=== PATIENT | male | born 1990 | race Two or more races ===

== ENCOUNTER 2016-12-05 14:44 | Emergency (ER) | payer OTHER ==
[2016-12-05 15:01] VITALS: BP 132/76; PULSE 90; RESP 16; TEMP 98.1; O2SAT 97
--- NOTE | 2016-12-05 15:27 | UCPHY ---
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 He describes associated small raised red bumps. He has been using Benadryl cream with partial improvement and notes no other exacerbating or alleviating factors. He took a break from that room for few days and then was back in the same area expose the same chemical over the past couple days with worsening symptoms. ROS: No mouth lesions. No shortness of breath wheeze. No nausea vomiting. No headache. No other symptoms and 7 point ROS is otherwise negative. Past Medical/Surgical History: Bleeding ulcer otherwise healthy Smoking Status: Never smoked Physical Exam: Physical Exam Vital signs are normal. General: No acute distress HEENT: Atraumatic. Mouth: No intraoral lesions. Eyes: Pupils equal and react to light. Extraocular motions are intact. Lungs: No respiratory distress. Cardiac: Brisk capillary refill is intact throughout. Skin: The patient has small raised erythematous papules to his neck some with desquamation from scratching these are also small 2-3 mm in size. No petechia or purpura. The affected skin is limited to the posterior neck. Neuro: Alert and oriented x3 with no sensorimotor deficits. Initial differential diagnosis: Contact dermatitis, nonspecific dermatitis Constitutional: Initial Vital Signs Temperature (C) 36.7 C 12/05/16 14:57 Heart Rate 90 12/05/16 14:57 Respiratory Rate 16 12/05/16 14:57 Blood Pressure 132/76 H 12/05/16 14:57 O2 Sat (%) 97 12/05/16 14:57 O2 Delivery Mode Room Air Allergies/Adverse Reactions: No Known Allergies Allergy (Unverified 12/05/16 14:55) Home Medications: Medication Instructions Recorded Hydrocortisone 0.2% Valerate 1 kurt TP BID #15 g 12/05/16 [Westcort 0.2% Cream (*)] MDM/Departure - [facility] ED Course/Re-evaluation: I counseled patient regarding contact dermatitis. He has no evidence of anaphylaxis or other concerning findings. - Depart Disposition: Home, Routine, Self-Care Clinical Impression: Contact dermatitis Qualifiers: Contact dermatitis type: allergic Contact dermatitis trigger: other chemical product Qualified Code(s): L23.5 - Allergic contact dermatitis due to other chemical products Condition: Good Instructions: Contact Dermatitis (ED) Additional Instructions: Diagnosis: Contact dermatitis to neck from chemical exposure Plan: Should avoid room "A" at work due to the culprit chemical that is causing this rash. Westcort steroid cream-apply 2 times a day for 7 days or until rashes resolved Benadryl in addition if needed for itching. However, do not take Benadryl works as it will make you tired. Resume work while avoiding room A. Return for any significant worsening despite the treatment plan Prescriptions: Hydrocortisone 0.2% Valerate [Westcort 0.2% Cream (*)] 1 kurt TP BID #15 g Referrals: NONE *PRIMARY CARE P,. [Primary Care Provider] - As per Instructions - PQRS PQRS Measurement: NA
== END 2016-12-05 16:05 | disposition home or self-care (01) ==
LOC: CED 14:44
DX: L23.5 Allergic contact dermatitis due to other chemical products (principal); Y99.0 Civilian activity done for income or pay; Y92.63 Factory as the place of occurrence of the external cause
CPT/HCPCS: 99203-PO; G0463-PO